=== PATIENT | female | born 1955 | race African-American/Black ===

== ENCOUNTER 2017-10-30 05:24 | Day surgery (SDC) | payer OTHER | END 2017-10-30 15:51 | disposition home or self-care (01) | LOC: JASU-SURG 05:24 | PROC: 0UDB7ZX Extraction of Endometrium, Via Natural or Artificial Opening, Diagnostic (ICD-10-PCS; principal; 2017-10-30) | PROC: 0UJD8ZZ Inspection of Uterus and Cervix, Via Natural or Artificial Opening Endoscopic (ICD-10-PCS; 2017-10-30) | CPT/HCPCS: 88305-TC; 94760 ==

== ENCOUNTER 2020-11-03 04:42 | Day surgery (SDC) | payer OTHER ==
[2020-11-01 13:07] VITALS: BMI 25.7
[~2020-11-03 04:42] MED LIST: ACETAMINOPHEN 325 MG TABLET (FP) PO PRN; BSS (NA/CA/MG/K) BALANCED SALT SOLUTION OPHTH SOLN 15 ML BOTTLE OS ONE; CHONDROITIN SU A/HYALUR SOD 1 KIT IO ONE; CYCLOPENTOLATE HCL 1% OPHTH SOLN 2 ML BOTTLE OP SCH; EPINEPHrine/PF 1 MG/1 ML (1:1,000) AMPULE SQ ONE; KETOROLAC TROMETHAMINE 0.5% EYE DROP 1 DROP DROPS OP SCH; LIDOCAINE HCL 1% PRESERVATIVE FREE - 30ML VIAL IO ONE; OFLOXACIN 0.3% OPHTHALMIC SOLUTION 5 ML BOTTLE OP SCH; PHENYLEPHRINE 2.5% OPHTH SOLN 15 ML BOTTLE OP SCH; POVIDONE-IODINE 5% OPHTHALMIC PREP 30 ML SOLUTION OS ONE; TETRACAINE 0.5% OPHTH SOLN 2 ML BOTTLE TP ONE; TROPICAMIDE 1% OPHTH SOLN 15 ML BOTTLE OP SCH
[2020-11-03] MEDS ORDERED: OFLOXACIN 0.3% OPHTHALMIC SOLUTION 5 ML BOTTLE ONE (06:23)
[2020-11-03] MEDS ORDERED: KETOROLAC TROMETHAMINE 0.5% EYE DROP 1 DROP DROPS ONE (06:23)
[2020-11-03] MEDS ORDERED: TROPICAMIDE 1% OPHTH SOLN 15 ML BOTTLE ONE (06:23)
[2020-11-03] MEDS ORDERED: CYCLOPENTOLATE HCL 1% OPHTH SOLN 2 ML BOTTLE ONE (06:23)
[2020-11-03] MEDS ORDERED: EPHEDRINE SULFATE/0.9% NACL/PF 50 MG/10 ML SYRINGE NR ONE (06:39)
[2020-11-03] MEDS ORDERED: SUCCINYLCHOLINE CHLORIDE 200 MG/10 ML SYRINGE ONE (06:39)
[2020-11-03] MEDS ORDERED: ROCURONIUM BROMIDE 50 MG/5 ML SYRINGE ONE (06:40)
[2020-11-03] MEDS ORDERED: PROPOFOL 20 ML ONE ×2 (06:40)
[2020-11-03] MEDS ORDERED: NEOSTIGMINE METHYLSULFATE 0.5 MG/ML - 10 ML MDV ONE (06:42)
[2020-11-03] MEDS ORDERED: LIDOCAINE HCL/PF 2% SDV 5ML VIAL ONE (06:43)
[2020-11-03] MEDS ORDERED: CYCLOPENTOLATE HCL 1% OPHTH SOLN 2 ML BOTTLE OS ONE ×3 (06:45→07:05)
[2020-11-03] MEDS ORDERED: KETOROLAC TROMETHAMINE 0.5% EYE DROP 1 DROP DROPS OS ONE ×3 (06:45→07:05)
[2020-11-03] MEDS ORDERED: PHENYLEPHRINE 2.5% OPHTH SOLN 15 ML BOTTLE OS ONE ×3 (06:45→07:05)
[2020-11-03] MEDS ORDERED: TROPICAMIDE 1% OPHTH SOLN 15 ML BOTTLE OS ONE ×3 (06:45→07:05)
[2020-11-03] MEDS ORDERED: OFLOXACIN 0.3% OPHTHALMIC SOLUTION 5 ML BOTTLE OS ONE ×3 (06:45→07:05)
[2020-11-03] MEDS ORDERED: LIDOCAINE HCL/PF 1% SDV 5ML VIAL ONE (07:09)
[2020-11-03] MEDS ORDERED: EPINEPHrine/PF 1 MG/1 ML (1:1,000) AMPULE ONE (07:10)
[2020-11-03] MEDS ORDERED: POVIDONE-IODINE 5% OPHTHALMIC PREP 30 ML SOLUTION ONE (07:10)
[2020-11-03] MEDS ORDERED: CHONDROITIN SU A/HYALUR SOD 1 KIT ONE (07:11)
[2020-11-03] MEDS ORDERED: MIDAZOLAM HCL 2 MG/2 ML SINGLE DOSE VIAL ONE (08:08)
[2020-11-03] MEDS ORDERED: TETRACAINE 0.5% OPHTH SOLN 2 ML BOTTLE TP ONE (08:16)
[2020-11-03] MEDS ORDERED: POVIDONE-IODINE 5% OPHTHALMIC PREP 30 ML SOLUTION OS ONE (08:19)
[2020-11-03] MEDS ORDERED: BSS (NA/CA/MG/K) BALANCED SALT SOLUTION OPHTH SOLN 15 ML BOTTLE OS ONE (08:32)
[2020-11-03] MEDS ORDERED: CHONDROITIN SU A/HYALUR SOD 1 KIT IO ONE (08:33)
[2020-11-03] MEDS ORDERED: LIDOCAINE HCL 1% PRESERVATIVE FREE - 30ML VIAL IO ONE (08:33)
[2020-11-03] MEDS ORDERED: EPINEPHrine/PF 1 MG/1 ML (1:1,000) AMPULE SQ ONE (08:39)
[2020-11-03 09:23] VITALS: TEMP 98.7
[2020-11-03 11:40] VITALS: BP 137/75; PULSE 86
== END 2020-11-03 09:50 | disposition home or self-care (01) ==
LOC: JASU-SURG 04:42
PROVIDERS: ATTEND Ophthalmology
PROC: 08RK3JZ Replacement of Left Lens with Synthetic Substitute, Percutaneous Approach (ICD-10-PCS; principal; 2020-11-03 08:00)
DX: H26.9 Unspecified cataract (principal)

== ENCOUNTER 2022-08-18 04:36 | Day surgery (SDC) | payer OTHER ==
[2022-08-17 12:41] VITALS: BMI 28.3
[2022-08-18 10:25] VITALS: RESP 18
[2022-08-18 12:55] VITALS: BP 129/70; PULSE 59; TEMP 98
== END 2022-08-18 12:55 | disposition home or self-care (01) ==
LOC: JASU-ENDO 04:36
PROVIDERS: ATTEND Internal Medicine Gastroenterology
PROC: 0DBN8ZX Excision of Sigmoid Colon, Via Natural or Artificial Opening Endoscopic, Diagnostic (ICD-10-PCS; 2022-08-18)
PROC: 0DBP8ZX Excision of Rectum, Via Natural or Artificial Opening Endoscopic, Diagnostic (ICD-10-PCS; 2022-08-18)
PROC: 0DBM8ZX Excision of Descending Colon, Via Natural or Artificial Opening Endoscopic, Diagnostic (ICD-10-PCS; principal; 2022-08-18 11:00)
DX: Z12.11 Encounter for screening for malignant neoplasm of colon (principal); D12.4 Benign neoplasm of descending colon; D12.5 Benign neoplasm of sigmoid colon; K62.1 Rectal polyp
CPT/HCPCS: 88305-TC

== ENCOUNTER 2023-05-24 12:52 | Emergency (ER) | payer OTHER ==
[2023-05-24] MEDS ORDERED: ACETAMINOPHEN 500 MG TABLET (FP) PO ONE (13:24)
[2023-05-24] MEDS ORDERED: ACETAMINOPHEN 500 MG TABLET (FP) ONE (13:28)
[2023-05-24 14:44] VITALS: BP 134/73; PULSE 62; RESP 16; TEMP 98; BMI 27.3
== END 2023-05-24 16:10 | disposition home or self-care (01) ==
LOC: JER 12:52
DX: M25.531 Pain in right wrist (principal); S63.301A Traumatic rupture of unspecified ligament of right wrist, initial encounter; R22.31 Localized swelling, mass and lump, right upper limb; V03.99XA Pedestrian with other conveyance injured in collision with car, pick-up truck or van, unspecified whether traffic or nontraffic accident, initial encounter
CPT/HCPCS: 73030-TC-RT-FY; 73070-TC-RT-FY; 73090-TC-RT-FY; 73110-TC-RT-FY; 73130-TC-RT-FY; 73502-TC-RT-FY; 99284-25

== ENCOUNTER → 2023-06-04 | Day surgery (SDC) | payer OTHER ==
[2023-05-30 09:33] VITALS: BMI 29.0
[~2023-06-04] MED LIST changes: -ACETAMINOPHEN 325 MG TABLET (FP) PO PRN; +ACETAMINOPHEN 500 MG TABLET (FP) ONE; -BSS (NA/CA/MG/K) BALANCED SALT SOLUTION OPHTH SOLN 15 ML BOTTLE OS ONE; +BUPIVACAINE HCL/PF 0.5% (5MG/ML) 10 ML VIAL IJ ONE; +BUPIVACAINE HCL/PF 0.5% (5MG/ML) 10 ML VIAL ONE; -CHONDROITIN SU A/HYALUR SOD 1 KIT IO ONE; -CYCLOPENTOLATE HCL 1% OPHTH SOLN 2 ML BOTTLE OP SCH; -EPINEPHrine/PF 1 MG/1 ML (1:1,000) AMPULE SQ ONE; +FENTANYL CITRATE/PF 50 MCG/ML VIAL ONE; -KETOROLAC TROMETHAMINE 0.5% EYE DROP 1 DROP DROPS OP SCH; +LACTATED RINGERS SOLUTION 1,000 ML IV SCH; -LIDOCAINE HCL 1% PRESERVATIVE FREE - 30ML VIAL IO ONE; +LIDOCAINE HCL 1%, 10 MG/ML (20ML VIAL) INF ONE; +LIDOCAINE HCL 1%, 10 MG/ML (20ML VIAL) ONE; +MIDAZOLAM HCL 2 MG/2 ML SINGLE DOSE VIAL ONE; -OFLOXACIN 0.3% OPHTHALMIC SOLUTION 5 ML BOTTLE OP SCH; +ONDANSETRON 4 MG/2 ML VIAL IVPUSH PRN; -PHENYLEPHRINE 2.5% OPHTH SOLN 15 ML BOTTLE OP SCH; -POVIDONE-IODINE 5% OPHTHALMIC PREP 30 ML SOLUTION OS ONE; +PROMETHAZINE HCL 25 MG/1 ML VIAL IVPB PRN; +PROPOFOL 20 ML ONE; +SUCCINYLCHOLINE CHLORIDE 200 MG/10 ML SYRINGE ONE; -TETRACAINE 0.5% OPHTH SOLN 2 ML BOTTLE TP ONE; -TROPICAMIDE 1% OPHTH SOLN 15 ML BOTTLE OP SCH; +ceFAZolin SODIUM 1 GM VIAL IVPB ONE; +oxyCODONE HCL 5 MG TABLET PO PRN
[2023-06-04 17:17] VITALS: BP 115/53; PULSE 58; RESP 18; TEMP 97.4
== END | disposition home or self-care (01) ==
LOC: JASU-SURG 04:33
PROVIDERS: ATTEND Orthopaedic Surgery
PROC: 01B60ZZ Excision of Radial Nerve, Open Approach (ICD-10-PCS; 2023-06-04)
PROC: 0RQN0ZZ Repair Right Wrist Joint, Open Approach (ICD-10-PCS; principal; 2023-06-04 09:30)
DX: S63.391A Traumatic rupture of other ligament of right wrist, initial encounter (principal); M24.231 Disorder of ligament, right wrist; X58.XXXA Exposure to other specified factors, initial encounter; Y93.9 Activity, unspecified; Y92.9 Unspecified place or not applicable
CPT/HCPCS: 76000-TC-FY; 88305-TC; 94760; C1713

== ENCOUNTER 2023-10-10 04:37 | Day surgery (SDC) | payer OTHER ==
[2023-10-04 14:12] VITALS: BMI 27.4
[~2023-10-10 04:37] MED LIST changes: +ACETAMINOPHEN 325 MG TABLET (FP) PO PRN; -ACETAMINOPHEN 500 MG TABLET (FP) ONE; -BUPIVACAINE HCL/PF 0.5% (5MG/ML) 10 ML VIAL IJ ONE; -BUPIVACAINE HCL/PF 0.5% (5MG/ML) 10 ML VIAL ONE; +CYCLOPENTOLATE HCL 1% OPHTH SOLN 2 ML BOTTLE OP SCH; -FENTANYL CITRATE/PF 50 MCG/ML VIAL ONE; +KETOROLAC TROMETHAMINE 0.5% EYE DROP 1 DROP DROPS OP SCH; -LACTATED RINGERS SOLUTION 1,000 ML IV SCH; -LIDOCAINE HCL 1%, 10 MG/ML (20ML VIAL) INF ONE; -LIDOCAINE HCL 1%, 10 MG/ML (20ML VIAL) ONE; -MIDAZOLAM HCL 2 MG/2 ML SINGLE DOSE VIAL ONE; +OFLOXACIN 0.3% OPHTHALMIC SOLUTION 5 ML BOTTLE OP SCH; -ONDANSETRON 4 MG/2 ML VIAL IVPUSH PRN; +PHENYLEPHRINE 2.5% OPHTH SOLN 15 ML BOTTLE OP SCH; -PROMETHAZINE HCL 25 MG/1 ML VIAL IVPB PRN; -PROPOFOL 20 ML ONE; -SUCCINYLCHOLINE CHLORIDE 200 MG/10 ML SYRINGE ONE; +TROPICAMIDE 1% OPHTH SOLN 15 ML BOTTLE OP SCH; -ceFAZolin SODIUM 1 GM VIAL IVPB ONE; -oxyCODONE HCL 5 MG TABLET PO PRN
[2023-10-10] MEDS ORDERED: PHENYLEPHRINE 2.5% OPTHALMIC DROP 2ML BOTTLE ONE (06:08)
[2023-10-10] MEDS ORDERED: KETOROLAC TROMETHAMINE 0.5% EYE DROP 1 DROP DROPS ONE (06:09)
[2023-10-10] MEDS ORDERED: OFLOXACIN 0.3% OPHTHALMIC SOLUTION 5 ML BOTTLE ONE (06:09)
[2023-10-10] MEDS ORDERED: TROPICAMIDE 1% OPHTH SOLN 15 ML BOTTLE ONE (06:09)
[2023-10-10] MEDS ORDERED: CYCLOPENTOLATE HCL 1% OPHTH SOLN 2 ML BOTTLE ONE (06:09)
[2023-10-10] MEDS: PHENYLEPHRINE 2.5% OPHTH SOLN 15 ML BOTTLE OD ONE ×2 (06:30→06:40)
[2023-10-10] MEDS: KETOROLAC TROMETHAMINE 0.5% EYE DROP 1 DROP DROPS OD ONE ×2 (06:30→06:40)
[2023-10-10] MEDS: TROPICAMIDE 1% OPHTH SOLN 15 ML BOTTLE OD ONE ×2 (06:30→06:40)
[2023-10-10] MEDS: OFLOXACIN 0.3% OPHTHALMIC SOLUTION 5 ML BOTTLE OD ONE ×2 (06:30→06:40)
[2023-10-10] MEDS: CYCLOPENTOLATE HCL 1% OPHTH SOLN 2 ML BOTTLE OD ONE ×2 (06:30→06:40)
[2023-10-10] MEDS ORDERED: EPINEPHrine/PF 1 MG/1 ML (1:1,000) AMPULE ONE (07:14)
[2023-10-10] MEDS ORDERED: TETRACAINE 0.5% OPHTH SOLN 2 ML BOTTLE ONE (07:15)
[2023-10-10] MEDS ORDERED: LIDOCAINE HCL/PF 1% SDV 5ML VIAL ONE (07:15)
[2023-10-10] MEDS ORDERED: VANCOMYCIN 500 MG VIAL (RESTRICTED TO ID ONLY) ONE (07:15)
[2023-10-10] MEDS ORDERED: POVIDONE-IODINE 5% OPHTHALMIC PREP 30 ML SOLUTION ONE (07:16)
[2023-10-10] MEDS ORDERED: BSS (NA/CA/MG/K) BALANCED SALT SOLUTION OPHTH SOLN 15 ML BOTTLE ONE (07:16)
[2023-10-10] MEDS ORDERED: MIDAZOLAM HCL 2 MG/2 ML SINGLE DOSE VIAL ONE (07:44)
[2023-10-10] MEDS ORDERED: ONDANSETRON 4 MG/2 ML VIAL ONE (07:44)
[2023-10-10] MEDS: TETRACAINE 0.5% OPHTH SOLN 2 ML BOTTLE OD ONE ×2 (08:04)
[2023-10-10] MEDS: BACITRACIN 3.5 GM OPTHALMIC OINT TUBE OD ONE ×2 (08:07)
[2023-10-10] MEDS ORDERED: SUCCINYLCHOLINE CHLORIDE 200 MG/10 ML SYRINGE ONE (08:07)
[2023-10-10] MEDS: LIDOCAINE HCL 1% PRESERVATIVE FREE - 30ML VIAL IJ ONE ×2 (08:10)
[2023-10-10] MEDS: BSS (NA/CA/MG/K) BALANCED SALT SOLUTION OPHTH SOLN 15 ML BOTTLE OD ONE ×2 (08:17)
[2023-10-10] MEDS: CHONDROITIN SU A/HYALUR SOD 1 KIT IO ONE ×2 (08:18)
[2023-10-10] MEDS: EPINEPHrine/PF 1 MG/1 ML (1:1,000) AMPULE SQ ONE ×2 (08:19)
[2023-10-10] MEDS: VANCOMYCIN 500 MG VIAL (RESTRICTED TO ID ONLY) IVPB ONE ×2 (08:30)
[2023-10-10] MEDS ORDERED: ACETAMINOPHEN 325 MG TABLET (FP) ONE (08:54)
[2023-10-10 09:15] VITALS: RESP 20; TEMP 97.1
[2023-10-10 09:49] VITALS: BP 135/67; PULSE 65
== END 2023-10-10 09:35 | disposition home or self-care (01) ==
LOC: JASU-SURG 04:37
PROVIDERS: ATTEND Ophthalmology
PROC: 08RJ3JZ Replacement of Right Lens with Synthetic Substitute, Percutaneous Approach (ICD-10-PCS; principal; 2023-10-10 08:00)
DX: H26.9 Unspecified cataract (principal)
CPT/HCPCS: V2632